=== PATIENT | female | born 1925 | race Caucasian/White ===

== ENCOUNTER → 2016-11-21 | Outpatient (CLI) | payer OTHER ==
[~2016-11-21] MED LIST: FLUMAZENIL 0.1 MG/ML INJ 10ML MDV IV ONE; MIDAZOLAM HCL 1MG/1ML-2 ML VIAL ONE
== END | disposition home or self-care (01) ==
LOC: US 12:18
DX: N60.01 Solitary cyst of right breast (principal)
CPT/HCPCS: 76642; 76942; J2250

== ENCOUNTER → 2016-12-17 | Outpatient (CLI) | payer OTHER | END | disposition home or self-care (01) | LOC: LAB 08:32 | DX: C50.411 Malignant neoplasm of upper-outer quadrant of right female breast (principal) | CPT/HCPCS: 36415; 82565; 84520 ==

== ENCOUNTER → 2017-01-09 | Outpatient (CLI) | payer OTHER | END | disposition home or self-care (01) | LOC: XYW 07:32 | PROVIDERS: ATTEND Internal Medicine Cardiovascular Disease | DX: Z01.818 Encounter for other preprocedural examination (principal); I48.91 Unspecified atrial fibrillation | CPT/HCPCS: 93306 ==

== ENCOUNTER 2017-01-22 10:02 | Day surgery (SDC) | payer OTHER ==
[2017-01-20 12:36] LABS: Urine RBC None Seen /hpf (0 - 4)
[2017-01-20 13:20] LABS: Partial Thromboplastin Time 30.4 sec (22.64-33.71)
[2017-01-20 13:21] LABS: Basophils # (auto) 0 uL; Basophils % (auto) 0.4 % (0.0-2.0); Eosinophils # (auto) 0.2 uL; Eosinophils % (auto) 2.6 % (0.0-7.0); Hematocrit 41.6 % (36.0-46.0); Lymphocytes # (auto) 1.6 uL; Lymphocytes % (auto) 23.2 % (10.0-50.0); Mean Corpuscular Hemoglobin 32.6 pg (28.0-32.0); Mean Corpuscular Hgb Conc. 33.7 g/dL (32.0-36.0); Mean Corpuscular Volume 96.7 fL (80.0-100.0); Mean Platelet Volume 8.1 fL (7.4-10.4); Monocytes # (auto) 0.6 uL; Neutrophils # (auto) 4.7 uL; Neutrophils % (auto) 65.8 % (37.0-80.0); Platelet Count (auto) 328 10^3/uL (140-450); Red Cell Distribution Width 13.6 % (11.6-16.0); White Blood Cell 7.1 10^3/uL (4.4-10.8)
[2017-01-20 13:28] LABS: INR 1.37 (0.9-1.15)
[2017-01-20 13:43] LABS: Urine Bilirubin Negative (Negative); Urine Blood Negative /uL (Negative); Urine Color Yellow (Yellow); Urine Glucose Normal (Normal); Urine Ketone Negative (Negative); Urine Nitrite Negative (Negative); Urine Urobilinogen Normal (Negative)
[2017-01-20 13:59] LABS: Albumin 3.6 g/dL (3.4-5.0); BUN/Creatinine Ratio 19.8; Bilirubin, Total 0.7 mg/dL (0.2-1.0); Calcium 9.3 mg/dL (8.5-10.1); Total Protein 7.1 g/dL (6.4-8.2)
[~2017-01-22] VITALS: Ht 160 cm; Wt 67.1 kg
[~2017-01-22 10:02] MED LIST changes: +DIGO0.1262 PO; -FLUMAZENIL 0.1 MG/ML INJ 10ML MDV IV ONE; +HYDR-4663 PO; +METO25TA62 PO; -MIDAZOLAM HCL 1MG/1ML-2 ML VIAL ONE; +WARF2.5T39 PO
[2017-01-22 11:12] LABS: Partial Thromboplastin Time 30.8 sec (22.64-33.71)
[2017-01-22 11:16] LABS: INR 1.24 (0.9-1.15); Prothrombin Time 13.5 sec (9.37-12.3)
[2017-01-22] MEDS ORDERED: NITROGLYCERIN 2% OINT 1GM PKG TD PRN (11:45)
[2017-01-22] MEDS ORDERED: NITROGLYCERIN 2% OINT 1GM PKG TD ONE (12:14)
[2017-01-22] MEDS ORDERED: fentaNYL CITRATE 100 MCG/2 ML VL ONE (12:14)
[2017-01-22] MEDS ORDERED: DEXAMETHASONE SOD PHOS 10MG/1ML VIAL INJ ONE (12:15)
[2017-01-22] MEDS ORDERED: PROPOFOL 10 MG/ML 20 ML IV ONE (12:15)
[2017-01-22] MEDS ORDERED: MIDAZOLAM HCL 1MG/1ML-2 ML VIAL ONE ×2 (12:15)
[2017-01-22] MEDS ORDERED: MEPERIDINE HCL (50 MG/ML) 1 ML VIAL ONE (12:15)
[2017-01-22] MEDS ORDERED: BUPIVACAINE W/ EPINEPH 0.25% INJ 50ML MDV ONE (12:18)
[2017-01-22] MEDS ORDERED: LIDOCAINE 1% HCL (LOCAL ANESTH.) INJ 20ML MDV ONE (12:18)
[2017-01-22] MEDS ORDERED: BUPIVACAINE 0.25% INJ 50ML VIAL ONE (12:18)
[2017-01-22] MEDS ORDERED: MORPHINE SULF INJ 2 MG/ML SYRINGE 1ML IV PRN (13:00)
[2017-01-22] MEDS ORDERED: KETOROLAC TROMETH 30 MG/ML 1ML VIAL IV ONE (13:00)
[2017-01-22] MEDS ORDERED: HYDROmorphone HCL 2 MG/ML VL IV PRN (13:00)
[2017-01-22] MEDS ORDERED: ePHEDrine SULFATE 50 MG/ML AMP IV PRN (13:00)
[2017-01-22] MEDS ORDERED: ONDANSETRON HCL 4 MG/2 ML VIAL IV ONE (13:00)
[2017-01-22] MEDS ORDERED: hydrALAZINE HCL 20 MG/ML VL IV PRN (13:00)
[2017-01-22] MEDS ORDERED: LABETALOL HCL 5 MG/ML 4ML SYRINGE IV PRN (13:00)
[2017-01-22] MEDS ORDERED: MIDAZOLAM HCL 1MG/1ML-2 ML VIAL IV PRN (13:00)
[2017-01-22 14:47] VITALS: BP 162/96
== END 2017-01-22 14:47 | disposition home or self-care (01) ==
LOC: SUR 10:02
PROVIDERS: ATTEND Surgery
DX: C50.911 Malignant neoplasm of unspecified site of right female breast (principal); Z87.891 Personal history of nicotine dependence
CPT/HCPCS: 19307; 36415; 80053; 81001; 85025; 85610; 85730; 88307; 88341; 88342; J1100; J2175; J2250; J2704; J3010; J2001; J3490